=== PATIENT | male | born 1945 | race Hispanic/Latino ===

== ENCOUNTER 2017-06-22 12:33 | Observation (INO) | payer MEDICARE, BC ==
[~2017-06-22] VITALS: Ht 170.2 cm; Wt 90.7 kg
[~2017-06-22 12:33] MED LIST: ASPIR 8181 MG PO; ATORVASTATIN CA20 MG PO; CLOPIDOGREL75 MG PO; HYDROCHLOROTHIA25 MG PO; ISOSORBIDE MONO20 MG PO; LORATADINE10 MG PO; LYRICA50 MG PO; METFORMIN HCL1000 MG PO; METOPROLOL TART50 MG PO; PANTOPRAZOLE SO40 MG PO; VITAMIN D400 UNIT PO
[2017-06-22 13:24] LABS: BASOPHILS % 0.5 % (0.0-1.0); EOSINOPHILS # (AUTO) 0.4 (0.0-0.4); EOSINOPHILS % 5.1 % (0.0-6.0); HEMATOCRIT 39.2 % (38.2-49.6); HEMOGLOBIN 13.4 g/dL (14.0-18.0); LYMPHOCYTES # (AUTO) 2.1 (1.0-3.2); LYMPHOCYTES % 27.7 % (18.0-39.1); MEAN CORPUSCULAR HEMOGLOBIN 29.5 pg (28-32); MEAN CORPUSCULAR HGB CONC 34.2 g/dL (31-35); MEAN CORPUSCULAR VOLUME 86.3 fL (81-99); MONOCYTES # (AUTO) 0.8 (0.2-0.8); MONOCYTES % 10.4 % (4.4-11.3); NEUTROPHILS # (AUTO) 4.3 (2.1-6.9); PLATELET COUNT 264 x10e3/uL (140-360); RED BLOOD COUNT 4.54 x10e6/uL (4.3-5.7)
[2017-06-22 13:39] LABS: ANION GAP 12.7 mmol/L (8-16); CALCIUM 9.1 mg/dL (8.4-10.2); CREATININE, SERUM 1.31 mg/dL (0.72-1.25); POTASSIUM 3.7 mmol/L (3.5-5.1)
[2017-06-22 13:45] LABS: CREATINE KINASE MB 1.9 ng/mL (0.00-5.00); TROPONIN I 0.01 ng/mL (0-0.300)
[2017-06-22] MEDS ORDERED: LANTUS 3ML100 UNITS/ (14:11)
[2017-06-22] MEDS ORDERED: NOVOLOG100 UNIT/1 (14:11)
[2017-06-22 14:27] LABS: BILIRUBIN,URINE NEGATIVE (NEGATIVE); CLARITY,URINE CLEAR (CLEAR); COLOR,URINE YELLOW (YELLOW); KETONES,URINE NEGATIVE (NEGATIVE); LEUKOCYTE ESTERASE ,URINE NEGATIVE (NEGATIVE); NITRITE,URINE NEGATIVE (NEGATIVE); URINE UROBILINOGEN 0.2 mg/dL (0.2 - 1)
[2017-06-22 14:28] LABS: INR 0.91; PARTIAL THROMBOPLASTIN TIME 27.3 seconds (23.8-35.5); PROTHROMBIN TIME 12.7 seconds (11.9-14.5)
[2017-06-22 14:44] LABS: PROTEIN,URINE DIPSTICK TRACE (NEGATIVE)
[2017-06-22 14:54] LABS: EPITHELIAL CELLS,URINE RARE /LPF
--- NOTE | 2017-06-22 18:03 | Diagnostic Imaging Report ---
EXAM: XR CHEST 2 VIEWS DATE: 06/22/2017 1:03 PM INDICATION: COMPARISON: None FINDINGS: Lines and Tubes: None Heart and Mediastinum: No acute findings. Lungs and Pleura: No acute findings. Minimal opacities in the lung bases statistically represent atelectasis, however, infectious process could have a similar appearance. Bones and Soft Tissues: No acute findings. IMPRESSION: 1. Probable basilar atelectasis. Correlation recommended. Signed by: Dr. Geovanni Jordan MD on 06/22/2017 6:00 PM
[2017-06-22] MEDS ORDERED: DEXTROSE 50% SYRINGE 50 ML IV PRN (18:15)
[2017-06-22] MEDS ORDERED: NITROGLYCERIN 0.4 MG SUBL SL PRN (18:15)
[2017-06-22] MEDS ORDERED: CODEINE SULFATE 15 MG TAB PO PRN (18:15)
[2017-06-22] MEDS ORDERED: ONDANSETRON HCL INJ 2 MG/ML VIAL IV PRN (18:15)
[2017-06-22] MEDS ORDERED: MORPHINE SULFATE 2 MG/ML SYR IV PRN (18:15)
[2017-06-22] MEDS: FAMOTIDINE 20 MG TAB PO SCH (18:57)
[2017-06-22] MEDS: SODIUM CHLORIDE 0.9% 1000ML 1,000 ML IV SCH (18:57)
[2017-06-22 21:32] VITALS: BP 148/68
[2017-06-22 21:52] VITALS: BP 148/68
[2017-06-23] VITALS: BP 148/70
[2017-06-23] MEDS: NITROGLYCERIN 2% OINT 1 GM PKT TOP SCH ×3 (00:18→11:43)
[2017-06-23 03:29] LABS: CREATINE KINASE MB 1.3 ng/mL (0.00-5.00); TROPONIN I 0.011 ng/mL (0-0.300)
[2017-06-23 04:00] VITALS: BP 177/76
[2017-06-23 05:09] VITALS: BP 156/70
[2017-06-23] MEDS: FAMOTIDINE 20 MG TAB PO SCH (05:09)
[2017-06-23] MEDS: SODIUM CHLORIDE 0.9% 1000ML 1,000 ML IV SCH (05:09)
[2017-06-23] MEDS ORDERED: SODIUM CHLORIDE 0.45% 1,000 ML IV SCH (06:00)
[2017-06-23 07:15] LABS: BASOPHILS % 0.6 % (0.0-1.0); EOSINOPHILS # (AUTO) 0.4 (0.0-0.4); EOSINOPHILS % 5.8 % (0.0-6.0); HEMATOCRIT 36.4 % (38.2-49.6); HEMOGLOBIN 12.3 g/dL (14.0-18.0); LYMPHOCYTES # (AUTO) 2.3 (1.0-3.2); LYMPHOCYTES % 34.1 % (18.0-39.1); MEAN CORPUSCULAR HEMOGLOBIN 29.4 pg (28-32); MEAN CORPUSCULAR HGB CONC 33.8 g/dL (31-35); MEAN CORPUSCULAR VOLUME 87.1 fL (81-99); MONOCYTES # (AUTO) 0.8 (0.2-0.8); MONOCYTES % 11.5 % (4.4-11.3); NEUTROPHILS # (AUTO) 3.2 (2.1-6.9); NEUTROPHILS % 47.6 % (38.7-80.0); PLATELET COUNT 227 x10e3/uL (140-360); RED BLOOD COUNT 4.18 x10e6/uL (4.3-5.7); RED CELL DISTRIBUTION WIDTH 14.1 % (11.7-14.4)
[2017-06-23 07:26] VITALS: BP 138/65
[2017-06-23 07:49] LABS: CREATINE KINASE MB 1.2 ng/mL (0.00-5.00); TROPONIN I 0.008 ng/mL (0-0.300)
[2017-06-23 08:22] LABS: ANION GAP 11.7 mmol/L (8-16); CALCIUM 8.5 mg/dL (8.4-10.2); CREATININE, SERUM 1.31 mg/dL (0.72-1.25); POTASSIUM 3.7 mmol/L (3.5-5.1)
--- NOTE | 2017-06-23 08:58 | History and Physical ---
PRIMARY CARE PHYSICIAN: Dr. Paez at [facility]. CHIEF COMPLAINT: Cough and chest pain. HISTORY OF PRESENT ILLNESS: A 71-year-old man with a history of coronary artery disease. The last stent placed in 2006, now developing chest discomfort with cough. He states that the cough started first and chest discomfort came later. He denies any fever, chills, sweats. He denies any other symptoms. He went to [facility] and they sent him here for further evaluation. PAST MEDICAL HISTORY: Hypertension, hyperlipidemia, coronary artery disease, status post stent placed in 2006. Left ureterolithiasis. Chronic kidney disease, stage 3. Diabetes mellitus type 2. Diabetic nephropathy. PAST SURGICAL HISTORY: Coronary stent placement, the last one in 2006. ALLERGIES: Per electronic medical records. SOCIAL HISTORY: The patient denies any alcohol, illicits or cigarettes. FAMILY HISTORY: History of diabetes and hypertension. MEDICATIONS: Per electronic medical records. REVIEW OF SYSTEMS: Denies any dizziness or chest pain. PHYSICAL EXAMINATION VITAL SIGNS: Reviewed. GENERAL APPEARANCE: A tired-appearing resting in the bed. HEENT: Anicteric. Pupils responsive to light. No oral lesions. CARDIOVASCULAR: Normal S1 and S2. LUNGS: Moderate breath sounds, no wheezing. ABDOMEN: Soft and nontender. Nondistended. EXTREMITIES: There is no edema. SKIN: Dry. PSYCHIATRIC: Normal affect. LABS: Reviewed. MEDICATIONS: Reviewed. ASSESSMENT AND PLAN: This is a 80-year-old man. 1. Chest pain/history of coronary artery disease with stent. Complete troponin series. The first 2 are negative. Will also continue the patient on beta kingsley, aspirin. statin. 2. Hypernatremia/dehydration. Will rehydrate the patient and reassess. 3. Diabetic nephropathy/chronic kidney disease, stage 3. Appears to be at baseline. 4. Diabetes mellitus type 2. Obtain hemoglobin A1c and lipid panel. 5. Hypertension/hyperlipidemia. Continue statin and beta kingsley, and nitrate. 6. Cough. He is on antitussive medication. Chest x-ray is clear. 7. Prophylaxis: Will use Lovenox and PPI. DISPOSITION: Discharge planning if third enzyme is negative and sodium improves may be discharged. Job#: [id number]
[2017-06-23] MEDS ORDERED: AZITHROMYCIN 250 MG TAB PO SCH (09:00)
[2017-06-23] MEDS ORDERED: LORATADINE 10 MG TAB PO SCH (09:00)
[2017-06-23] MEDS ORDERED: METOPROLOL TARTRATE 50 MG TAB PO SCH (09:00)
[2017-06-23] MEDS ORDERED: HYDROCHLOROTHIAZIDE 25 MG TAB PO SCH (09:00)
[2017-06-23] MEDS ORDERED: ASPIRIN 81 MG ENTERIC COATED PO SCH (09:00)
[2017-06-23] MEDS ORDERED: CLOPIDOGREL BISULFATE 75 MG TAB PO SCH (09:00)
[2017-06-23] MEDS ORDERED: PREGABALIN 50 MG CAP PO SCH (09:00)
[2017-06-23] MEDS ORDERED: BENZONATATE 100 MG CAP PO SCH (09:00)
[2017-06-23] MEDS ORDERED: ASPIRIN 81 MG CHEW TAB PO SCH (09:00)
[2017-06-23] MEDS ORDERED: ISOSORBIDE MONONITRATE 20 MG TAB PO SCH (09:00)
[2017-06-23] MEDS ORDERED: OSELTAMIVIR PHOSPHATE 75 MG CAP PO SCH (09:00)
[2017-06-23] MEDS ORDERED: PANTOPRAZOLE SOD 40 MG TABEC PO SCH (09:00)
[2017-06-23 11:48] VITALS: BP 145/69
[2017-06-23 15:30] VITALS: BP 152/67
[2017-06-23] MEDS ORDERED: ATORVASTATIN 20 MG TAB PO SCH (21:00)
--- NOTE | 2017-06-24 06:58 | Discharge Summary ---
PRINCIPAL DIAGNOSES 1. Coronary artery disease. 2. Hypernatremia. 3. Diabetic nephropathy. 4. Diabetes mellitus type 2. SECONDARY DIAGNOSIS: Diabetes mellitus type 2. CHIEF COMPLAINT: Shortness of breath and chest pain. HISTORY OF PRESENT ILLNESS: A 71-year-old man developing shortness of breath and chest pain. Please refer to the H and P for further details. HOSPITAL COURSE: Patient was found to have chest discomfort. Cardiac enzymes all negative. Symptoms completely resolved. He had hypernatremia, received free water with resolution. Doing better and currently appropriate for discharge. Will follow up. DISCHARGE MEDICATIONS: Per electronic medical record. FOLLOWUP: With primary care doctor in 1 week and follow up with sprinkler inspector in 1 week. CONDITION ON DISCHARGE: Stable and improving. DISCHARGE LOCATION: Home. JUDI WINKLER MD Job#: [id number]
== END 2017-06-23 15:40 | disposition home or self-care (01) ==
LOC: ER 12:33 → IMCU 19:55
PROVIDERS: ADMIT Internal Medicine; ATTEND Internal Medicine
DX: I25.10 Atherosclerotic heart disease of native coronary artery without angina pectoris (principal); J09.X2 Influenza due to identified novel influenza A virus with other respiratory manifestations; Z95.5 Presence of coronary angioplasty implant and graft; E11.21 Type 2 diabetes mellitus with diabetic nephropathy; E11.22 Type 2 diabetes mellitus with diabetic chronic kidney disease; I12.9 Hypertensive chronic kidney disease with stage 1 through stage 4 chronic kidney disease, or unspecified chronic kidney disease; N18.3 Chronic kidney disease, stage 3 (moderate); E87.0 Hyperosmolality and hypernatremia; E78.5 Hyperlipidemia, unspecified
CPT/HCPCS: 36415 ×2; 71020; 80048 ×2; 80061; 81001; 82550 ×2; 82553 ×2; 82948 ×2; 83036; 84484 ×2; 85025 ×2; 85610; 85730; 87086; 93005; 99284; G0378 ×2; J7030 ×2